=== PATIENT | female | born 1955 | race Caucasian/White ===

== ENCOUNTER 2017-08-28 15:46 | Observation (INO) | payer MEDICAID ==
--- NOTE | 2017-08-28 16:21 | EDM.PDOC ---
ED HPI GENERAL MEDICAL PROBLEM - General Chief Complaint: General Stated Complaint: IN BY AMBULANCE Time Seen by Provider: 08/28/17 16:05 Source of Information: Reports: Patient History Limitations: Reports: No Limitations - History of Present Illness INITIAL COMMENTS - FREE TEXT/NARRATIVE: This 61 yo female patient was brought to the ED by [facility] due to not being able to take care of herself. The patient reports she checked herself out of [facility] in [place]. The patient wanted to be at home with her autistic son as she has been away for the past 14 months. Once the patient arrived at home (by ambulance ), the patient realized that she would not be able to stay there. The patient reports her home was "infested" with flies. The patient reports she was not able to stay in her bed as she has been used to having a bed that inclines. The patient does not know the last time she was able to ambulate. The patient reports she would like to get back to [facility] as she was "happy there". Onset: Unknown/Unsure Duration: Constant Location: Reports: Generalized Quality: Reports: Ache, Dull Severity: Moderate Improves with: Reports: Medication (pain medication) Worsens with: Reports: Movement Associated Symptoms: Reports: Weakness (generalized) Generalized Pain Score (Numeric/FACES): 8 - Related Data Allergies Allergy/AdvReac Type Severity Reaction Status Date / Time No Known Allergies Allergy Verified 06/25/16 18:15 Home Meds: Home Meds Gabapentin [Neurontin] 300 mg PO BEDTIME 06/25/16 [History] Metoprolol Tartrate 25 mg PO BID 06/25/16 [History] Amiodarone [Cordarone] 200 mg PO DAILY 09/04/16 [History] Polyethylene Glycol 3350 [MiraLAX] 17 gm PO DAILY 09/04/16 [History] Simvastatin [Zocor] 10 mg PO BEDTIME 09/04/16 [History] Iron Polysaccharide Complex [Polysaccharide Iron 150] 150 mg PO DAILY 09/17/16 [ History] Amoxicillin 1 cap PO TID 08/28/17 [History] Cyclobenzaprine [Flexeril] 1 tab PO BEDTIME PRN 08/28/17 [History] Escitalopram [Lexapro] 1 tab PO DAILY 08/28/17 [History] Hydrocodone/Acetaminophen [Hydrocodon-Acetaminophn 10-325] 1 tab PO ASDIRECTED PRN 08/28/17 [History] Lactulose [Constulose] 15 ml PO DAILY 08/28/17 [History] Levothyroxine Sodium [Synthroid] 1 tab PO DAILY 08/28/17 [History] Pantoprazole Sodium 1 tab PO BID 08/28/17 [History] Potassium Chloride 1 tab PO DAILY 08/28/17 [History] Rivaroxaban [Xarelto] 1 tab PO DAILY 08/28/17 [History] Past Medical History HEENT History: Reports: Other (See Below) Other HEENT History: dental caries Cardiovascular History: Reports: Afib, High Cholesterol, Hypertension Respiratory History: Reports: Asthma Genitourinary History: Reports: Acute Renal Failure, Urinary Incontinence STAFF SCIENTIST History: Reports: Dysfunctional Uterine Bleeding, Musculoskeletal History: Reports: Arthritis, Back Pain, Chronic, Other (See Below) Other Musculoskeletal History: left knee pain Neurological History: Reports: Neuropathy, Diabetic Endocrine/Metabolic History: Reports: Diabetes, Type II, Obesity/BMI 30+ Hematologic History: Reports: Anemia Oncologic (Cancer) History: Reports: Ovarian - Infectious Disease History Infectious Disease History: Reports: Chicken Pox, Measles, Mumps - Past Surgical History GI Surgical History: Reports: Hernia Repair/Other Social & Family History - Family History Family Medical History: Noncontributory - Tobacco Use Smoking Status *Q: Never Smoker Second Hand Smoke Exposure: No - Caffeine Use Caffeine Use: Reports: None - Recreational Drug Use Recreational Drug Use: No ED ROS GENERAL - Review of Systems Review Of Systems: ROS reveals no pertinent complaints other than HPI. ED EXAM, GENERAL - Physical Exam Exam: See Below Exam Limited By: No Limitations General Appearance: Alert, WD/WN, Moderate Distress, Obese (morbid) Eye Exam: Bilateral Eye: EOMI, Normal Inspection, PERRL Ears: Normal External Exam, Normal Canal, Hearing Grossly Normal, Normal TMs Nose: Normal Inspection, Normal Mucosa, No Blood Throat/Mouth: Normal Inspection, Normal Lips, Normal Teeth, Normal Gums, Normal Oropharynx, Normal Voice, No Airway Compromise Head: Atraumatic, Normocephalic Neck: Normal Inspection, Supple, Non-Tender, Full Range of Motion Respiratory/Chest: No Respiratory Distress, Lungs Clear, Normal Breath Sounds, No Accessory Muscle Use, Chest Non-Tender Cardiovascular: Normal Peripheral Pulses, Regular Rate, Rhythm, No Edema, No Gallop, No JVD, No Murmur, No Rub GI/Abdominal: Normal Bowel Sounds, Soft, Non-Tender, No Organomegaly, No Distention, No Abnormal Bruit, No Mass, Other (morbid obesity) (Female) Exam: Deferred Rectal (Female) Exam: Deferred Back Exam: Normal Inspection, Full Range of Motion Extremities: Pedal Edema, Other (The patient has a wound to her left thigh ( packed) with a small amount of dark purulent drainage) Neurological: Alert, Oriented, CN II-XII Intact, Normal Cognition Psychiatric: Depressed Mood, Flat Affect Skin Exam: Other (wound to left lateral thigh ) Lymphatic: No Adenopathy Course - Vital Signs Last Recorded V/S: Last Vital Signs Temp 37.0 C 08/28/17 15:46 Pulse 67 08/28/17 15:46 Resp 20 08/28/17 15:46 BP 145/86 H 08/28/17 15:46 Pulse Ox 94 L 08/28/17 15:46 - Orders/Labs/Meds Orders: Active Orders 24 hr Category Date Time Status CULTURE BLOOD [BC] Stat Lab 08/28/17 17:00 Received UA W/MICROSCOPIC [URIN] Stat Lab 08/28/17 16:14 Uncollected Labs: Laboratory Tests 08/28/17 08/28/17 08/28/17 Range/Units 16:22 16:22 16:22 WBC 13.9 H (5.0-10.0) 10^3/uL RBC 4.02 L (4.2-5.4) 10^6/uL Hgb 12.4 D (12.0-16.0) g/dL Hct 39.0 (37.0-47.0) % MCV 97.0 D (80-100) fL MCH 30.8 (27.0-34.0) pg MCHC 31.8 L (33.0-35.0) g/dL Plt Count 249 D (150-450) 10^3/uL Neut % (Auto) 80.7 H (42.2-75.2) % Lymph % (Auto) 9.8 L (20.5-50.1) % [place] % (Auto) 9.1 H (2-8) % Eos % (Auto) 0.1 L (1.0-3.0) % Baso % (Auto) 0.3 (0.0-1.0) % PT 11.3 D (9.0-12.0) SEC INR 1.1 (0.9-1.2) Sodium 137 (135-145) mmol/L Potassium 4.0 (3.6-5.0) mmol/L Chloride 100 L (101-111) mmol/L Carbon Dioxide 26.0 (21.0-31.0) mmol/L Anion Gap 15.0 BUN 31 H (7-18) mg/dL Creatinine 1.4 H (0.6-1.3) mg/dL Est Cr Clr Drug Dosing 54.64 mL/min Estimated GFR (MDRD) 38 BUN/Creatinine Ratio 22.14 Glucose 128 H (74-105) mg/dL Lactic Acid (0.5-2.2) mmol/L Calcium 9.3 (8.4-10.2) mg/dl Total Bilirubin 0.8 (0.2-1.0) mg/dL AST 35 (10-42) IU/L ALT 17 (10-60) IU/L Alkaline Phosphatase 62 (42-121) IU/L Total Protein 7.1 (6.7-8.2) g/dl Albumin 3.4 (3.2-5.5) g/dl Globulin 3.7 Albumin/Globulin Ratio 0.92 10/25/17 Range/Units 17:00 WBC (5.0-10.0) 10^3/uL RBC (4.2-5.4) 10^6/uL Hgb (12.0-16.0) g/dL Hct (37.0-47.0) % MCV (80-100) fL MCH (27.0-34.0) pg MCHC (33.0-35.0) g/dL Plt Count (150-450) 10^3/uL Neut % (Auto) (42.2-75.2) % Lymph % (Auto) (20.5-50.1) % [place] % (Auto) (2-8) % Eos % (Auto) (1.0-3.0) % Baso % (Auto) (0.0-1.0) % PT (9.0-12.0) SEC INR (0.9-1.2) Sodium (135-145) mmol/L Potassium (3.6-5.0) mmol/L Chloride (101-111) mmol/L Carbon Dioxide (21.0-31.0) mmol/L Anion Gap BUN (7-18) mg/dL Creatinine (0.6-1.3) mg/dL Est Cr Clr Drug Dosing mL/min Estimated GFR (MDRD) BUN/Creatinine Ratio Glucose (74-105) mg/dL Lactic Acid 1.3 (0.5-2.2) mmol/L Calcium (8.4-10.2) mg/dl Total Bilirubin (0.2-1.0) mg/dL AST (10-42) IU/L ALT (10-60) IU/L Alkaline Phosphatase (42-121) IU/L Total Protein (6.7-8.2) g/dl Albumin (3.2-5.5) g/dl Globulin Albumin/Globulin Ratio - Re-Assessments/Exams Free Text/Narrative Re-Assessment/Exam: 08/28/17 17:59 Discussed the patient's situation with Kizzy Estrada ([facility] in [place]). The referral form was filled out for readmission to [facility] and faxed to the number given on the form along with notes and labs. Kizzy advised that she will submit information back to the [facility] in the morning looking for approval due to failure of home management and readmission to our facility. Discussed the patient's situation with Dr. Mattson (Hospitalist with [facility] in [place]). Dr. Mattson agreed to come to the ED to evaluate the patient for possible observation admission at our facility. Departure - Departure Time of Disposition: 18:21 Disposition: Admitted As Inpatient 66 Condition: Poor Clinical Impression: Self-care deficit for bathing and hygiene, Failure to thrive in adult Leukocytosis, unspecified Qualifiers: Leukocytosis type: bandemia Qualified Code(s): D72.825 - Bandemia - Discharge Information Care Plan Goals: Discussed the patient's history, examination and lab results with Dr. Mattson. Dr. Mattson accepted the patient for continued evaluation and management as an observation patient. - My Orders Last 24 Hours: My Active Orders 08/28/17 16:14 UA W/MICROSCOPIC [URIN] Stat 08/28/17 17:00 CULTURE BLOOD [BC] Stat - Assessment/Plan Last 24 Hours: My Active Orders 08/28/17 16:14 UA W/MICROSCOPIC [URIN] Stat 08/28/17 17:00 CULTURE BLOOD [BC] Stat
[2017-08-28] MEDS ORDERED: Ondansetron 4 MG Tab.DIS PO PRN (19:09)
[2017-08-28] MEDS ORDERED: Non-Formulary Medication 1 Each (Melatonin [Melatonin] 1 TAB) PO PRN (19:13)
[2017-08-28] MEDS ORDERED: Acetaminophen 325 MG Tab PO PRN ×2 (19:13→20:14)
[2017-08-28] MEDS ORDERED: Cyclobenzaprine 10 MG Tab PO PRN (19:13)
[2017-08-28] MEDS ORDERED: Polyvinyl Alcohol 1.4% Ophth Soln 15 ML Bottle EYEBOTH PRN (19:13)
[2017-08-28] MEDS ORDERED: Acetaminophen/HYDROcodone 325-10 MG Tab PO PRN (19:13)
[2017-08-28] MEDS: Amoxicillin 500 MG Cap PO SCH (20:46)
[2017-08-28] MEDS: Simvastatin 10 MG Tab PO SCH (20:46)
[2017-08-28] MEDS: Metoprolol Tartrate 25 MG Tab PO SCH (20:46)
[2017-08-28] MEDS: Gabapentin 300 MG Cap PO SCH (20:46)
[2017-08-28] MEDS: Nystatin Topical Powder 30 GM Bottle TOP SCH (20:58)
[2017-08-28] MEDS ORDERED: Heparin Sodium 5,000 Units/ML Vial SUBCUT SCH (22:00)
[2017-08-29] MEDS: Acetaminophen/HYDROcodone 325-10 MG Tab PO PRN ×4 (01:13→21:46)
--- NOTE | 2017-08-29 01:22 | HP ---
CHIEF COMPLAINT: Weakness. HISTORY OF PRESENT ILLNESS: Ms. Ebony Goodwin is a 61-year-old female who checked with multiple medical problems including morbid obesity, diabetes, hypertension, and decubitus ulcers. The patient has been staying at [facility] in [place]. She signed out against medical advice and went home to stay with her autistic son. On getting home, she realized that the house was very unkempt. The house was infested with flies. She was unable to stay there. She has been feeling weak. Denies fever, chills, or rigors. Because of that, she came to the emergency room. Reported that she would like to go back to [facility]. She does have a wound on the left lateral thigh. She has been getting amoxicillin for that. PAST MEDICAL HISTORY: Asthma, diabetes mellitus, morbid obesity, hypertension, dyslipidemia, neuropathy. SOCIAL HISTORY: Reviewed and considered noncontributory. FAMILY HISTORY: Also reviewed and considered noncontributory. CURRENT MEDICATIONS: Reviewed. The patient is on: 1. Xarelto. 2. Amoxicillin. 3. Amiodarone. 4. Metoprolol. 5. Gabapentin. 6. Simvastatin. 7. Flexeril. 8. Lexapro. 9. [place]. 10.Levothyroxine. 11.Protonix. OBJECTIVE: General: The patient is alert, oriented to place, time, and person. Head: Atraumatic and normocephalic. Ear, Nose, and Throat: Unremarkable. Neck: Supple. Chest: Clear to auscultation. CVS: Regular rate and rhythm. Abdomen: Soft, nontender. Extremities: Has a decubitus ulcer on the lateral surface of the left upper thigh. No significant slough noted. Vital Signs: Reviewed. Blood pressure is 140/95, pulse 82 per minute, respiratory rate 20 per minute, oxygen saturation 96%. LABORATORY DATA: White count is 13.9, hemoglobin is 12.4, platelet is 249. Basic metabolic panel is essentially unremarkable. ASSESSMENT: 1. Generalized weakness. 2. Infected decubitus ulcers. 3. Diabetes mellitus type 2. 4. Hypothyroidism. 5. Hypertension. PLAN: 1. Admit the patient to medical floor. 2. Consult Dairy Helper. Consult Physical Therapy. Consult Occupational Therapy. 3. Restart amoxicillin. We will make arrangement to have the patient transferred back to [facility] in the morning. [facility] /[id number]
[2017-08-29] MEDS: Levothyroxine 75 MCG Tab PO SCH (05:46)
[2017-08-29] MEDS: Rivaroxaban 10 MG Tab PO SCH (08:43)
[2017-08-29] MEDS: Amoxicillin 500 MG Cap PO SCH ×3 (08:43→21:18)
[2017-08-29] MEDS: Escitalopram 10 MG Tab PO SCH (08:43)
[2017-08-29] MEDS: Calcium Carbonate/Vitamin D3 1250 MG-200 Unit Tab PO SCH (08:44)
[2017-08-29] MEDS: Iron Polysaccharides Complex 150 MG Cap PO SCH (08:44)
[2017-08-29] MEDS: Amiodarone 200 MG Tab PO SCH (08:44)
[2017-08-29] MEDS: Metoprolol Tartrate 25 MG Tab PO SCH ×2 (08:45→21:23)
[2017-08-29] MEDS: Polyethylene Glycol 3350 Powder 17 GM Packet PO SCH (08:46)
[2017-08-29] MEDS: Ascorbic Acid 500 MG Tab PO SCH (08:51)
[2017-08-29] MEDS: Nystatin Topical Powder 30 GM Bottle TOP SCH ×2 (08:53→21:27)
--- NOTE | 2017-08-29 20:53 | PN ---
DATE: 08/29/2017 SUBJECTIVE: Ebony Goodwin is a 61-year-old lady, well known to me from many years of care. She has been ill and hospitalized almost continually since June 29, 2016. She was discharged back to home last September 03, but was back in the hospital the following day and has been continuously hospitalized since September 04, 2016. She was discharged from [facility], a [facility] in [place], on August 27. She called the ambulance yesterday again stating that she was unable to take care of herself. Adult Protective Services has been involved in this situation and is working with us to determine placement. Our swing bed coordinator was on the phone today several times with [facility] and in the afternoon, [facility] stated that they would not re-admit her and we are now in the process of seeking a long-term residential placement in the local area. We have made calls to 4 nursing homes and the swing bed coordinator has faxed out information for them to review. Lab work from admission was reviewed. Her white count was 14,000. I have taken care of this lady for many years and her white count at baseline has always been slightly elevated in the same range. BUN and creatinine yesterday were 31 and 1.4 with a GFR of 38. Her blood sugars are being monitored and are well controlled. One set of blood culture shows no growth after 1 day. Ebony is in her bed. We discussed her situation and the alternatives. The worker from Adult Protective Services also came to see her and spent time with her. Ebony now, at least, excepts the fact that she most likely will go to the care home. PHYSICAL EXAMINATION: General: On physical exam, she denied chest pain or shortness of breath. She is drinking adequate fluids. She is voiding and moving her bowels. She is tolerating her diet. Vital Signs: Blood pressure was 109/66, pulse 72, respiratory rate 20, oxygen saturation 100% on room air. She is afebrile. HEENT: Unremarkable. ENT was clear. Chest: Showed diminished bilateral breath sounds due to body habitus. Heart: Showed regular rate and rhythm. Abdomen: Obese, soft, and benign. Skin: Examination of the skin shows a healing pressure wound on the left posterior lateral thigh. This wound was debrided surgically in [place]. She is currently being treated with wet-to-dry dressings using Dakin's solution. We have ordered Dakin's and it will be here tomorrow and for now, the area is being cleansed and we are using sterile saline wet-to-dry dressings. We will continue the present management while we seek placement. No other changes are made in her care today. [facility] /[id number] JASON
[2017-08-29] MEDS: Pantoprazole 40 MG Tab.CR PO SCH (21:17)
[2017-08-29] MEDS: Simvastatin 10 MG Tab PO SCH (21:18)
[2017-08-29] MEDS: Gabapentin 300 MG Cap PO SCH (21:19)
[2017-08-30] MEDS: Pantoprazole 40 MG Tab.CR PO SCH ×2 (05:54→16:40)
[2017-08-30] MEDS: Levothyroxine 75 MCG Tab PO SCH (05:54)
[2017-08-30] MEDS: Amiodarone 200 MG Tab PO SCH (08:36)
[2017-08-30] MEDS: Iron Polysaccharides Complex 150 MG Cap PO SCH (08:36)
[2017-08-30] MEDS: Calcium Carbonate/Vitamin D3 1250 MG-200 Unit Tab PO SCH (08:36)
[2017-08-30] MEDS: Amoxicillin 500 MG Cap PO SCH ×2 (08:36→14:36)
[2017-08-30] MEDS: Ascorbic Acid 500 MG Tab PO SCH (08:36)
[2017-08-30] MEDS: Metoprolol Tartrate 25 MG Tab PO SCH (08:37)
[2017-08-30] MEDS: Rivaroxaban 10 MG Tab PO SCH (08:38)
[2017-08-30] MEDS: Polyethylene Glycol 3350 Powder 17 GM Packet PO SCH (08:38)
[2017-08-30] MEDS: Escitalopram 10 MG Tab PO SCH (08:38)
[2017-08-30 08:39] VITALS: BP 123/74
[2017-08-30] MEDS: Acetaminophen/HYDROcodone 325-10 MG Tab PO PRN ×2 (08:49→16:38)
[2017-08-30] MEDS: Nystatin Topical Powder 30 GM Bottle TOP SCH (08:52)
--- NOTE | 2017-08-30 16:39 | PCM.DCSUM1 ---
Discharge Summary - Hospital Course Free Text/Narrative:: 61 y/o female with PMH of HTN, diabetes mellitus, dyslipidemia, neuropathy, asthma, morbid obesity, decubitus ulcer presented to the emergency room for not being able to stay at her house due to concern about lack of hygiene. Patient was staying at [facility] in [place], [place] and left home AGAINST MEDICAL ADVICE on 08/27 to go stay with her autistic son. However when she got home she relies the house was infested with flies and feces are thrown everywhere so she called the ambulance stating that she cannot take care of herself. Adult Protective Services were involved and wanted her to have placement so she was brought to the emergency room and was admitted to the hospital. Patient has been getting amoxicillin for her decubitus ulcer. Patient had debridement of her ulcer by general surgery in [place], [place]. Oriented admission patient denies fever, chills, nausea, vomiting, chest pain, shortness breath. Today patient mentioned to me that 2 days ago she slept on her right arm and since then it has been hurting mostly in the shoulder area. She denies fall. no arm weakness. On admission WBC 13.9. Neutrophils 80.7%. INR 1.1. Creatinine 1.4. Blood glucose 128. UA is unremarkable. Patient was admitted to medical floor for generalized weakness, infected decubitus ulcer and amoxicillin was restarted. ornamental metal worker helper was involved to arrange for transferring back [facility]. Ultrasound was social media manager and coordinating staff was decided that patient being admitted to swing bed while trying to find a penitentiary for her to get physical therapy and wound care as patient first to go back to her home and stay with her son eventually. Today patient denies any complaint other than some right arm pain that gotten much better than yesterday. She'll be admitted to swing bed under resume her current treatment. - Discharge Data Discharge Date: 08/30/17 Discharge Disposition: DC/Tfer W/I Hosp To Swing 61 Condition: Good - Discharge Diagnosis/Problem(s) (1) Failure to thrive in adult SNOMED Code(s): 290494578 ICD Code: R62.7 - ADULT FAILURE TO THRIVE Status: Acute Current Visit: Yes (2) Chronic kidney disease (CKD), stage III (moderate) SNOMED Code(s): 376555637 ICD Code: N18.3 - CHRONIC KIDNEY DISEASE, STAGE 3 (MODERATE) Status: Chronic Current Visit: No Onset Date: ~06/25/16 (3) Diabetes mellitus, type 2 SNOMED Code(s): 33554492 ICD Code: E11.9 - TYPE 2 DIABETES MELLITUS WITHOUT COMPLICATIONS Status: Chronic Priority: Medium Current Visit: No Qualifiers: Diabetes mellitus complication status: without complication Diabetes mellitus senior living insulin use: without clamper use Qualified Code(s): E11.9 - Type 2 diabetes mellitus without complications (4) Morbid obesity with BMI of 60.0-69.9, adult SNOMED Code(s): 233394367 ICD Code: E66.01 - MORBID (SEVERE) OBESITY DUE TO EXCESS CALORIES; Z68.44 - BODY MASS INDEX (BMI) 60.0-69.9, ADULT Status: Chronic Priority: High Current Visit: No - Discharge Plan Home Medications: Home Meds Gabapentin [Neurontin] 300 mg PO BEDTIME 06/25/16 [History] Metoprolol Tartrate 25 mg PO BID 06/25/16 [History] Amiodarone [Cordarone] 200 mg PO DAILY 09/04/16 [History] Polyethylene Glycol 3350 [MiraLAX] 17 gm PO DAILY 09/04/16 [History] Simvastatin [Zocor] 10 mg PO BEDTIME 09/04/16 [History] Iron Polysaccharide Complex [Polysaccharide Iron 150] 150 mg PO DAILY 09/17/16 [ History] Acetaminophen [Tylenol] 2 tab PO Q8HR PRN 08/28/17 [History] Amoxicillin 1 cap PO TID 08/28/17 [History] Ascorbate Calcium [Vitamin C] 1 tab PO DAILY 08/28/17 [History] Bisacodyl 1 supp RC ASDIRECTED PRN 08/28/17 [History] Calcium Carbonate/Vitamin D3 [Calcium 500-Vit D3 200 Tablet] 1 tab PO DAILY [History] Cyclobenzaprine [Flexeril] 1 tab PO BEDTIME PRN 08/28/17 [History] Escitalopram [Lexapro] 1 tab PO DAILY 08/28/17 [History] Hydrocodone/Acetaminophen [Hydrocodon-Acetaminophn 10-325] 1 tab PO Q6HR PRN [History] Lactulose [Constulose] 15 ml PO DAILY 08/28/17 [History] Levothyroxine Sodium [Synthroid] 1 tab PO DAILY 08/28/17 [History] Melatonin 1 tab PO BEDTIME PRN 08/28/17 [History] Multivitamin with Minerals [Multivitamins with Minerals] 1 tab PO DAILY [History] Pantoprazole Sodium 1 tab PO BID 08/28/17 [History] Polyvinyl Alcohol [Liquitears] 1 drop EYEBOTH ASDIRECTED PRN 08/28/17 [History] Potassium Chloride 1 tab PO DAILY 08/28/17 [History] Rivaroxaban [Xarelto] 1 tab PO DAILY 08/28/17 [History] Sennosides/Docusate Sodium [Senna Plus Tablet] 2 tab PO BID 08/28/17 [History] Referrals: PCP,None [Primary Care Provider] - - General Info Date of Service: 08/30/17 - Review of Systems General: Denies: Fever, Chills, Night Sweats, Appetite HEENT: Reports: No Symptoms Pulmonary: Reports: No Symptoms Cardiovascular: Reports: No Symptoms Gastrointestinal: Reports: No Symptoms Genitourinary: Reports: No Symptoms Musculoskeletal: Denies: Neck Pain, Leg Pain, Foot Pain Skin: Denies: Jaundice, Pallor, Diaphoresis Neurological: Reports: No Symptoms Psychiatric: Reports: No Symptoms - Patient Data Vitals - Most Recent: Last Vital Signs Temp 36.3 C 08/30/17 08:00 Pulse 73 08/30/17 08:37 Resp 20 08/30/17 08:00 BP 123/74 08/30/17 08:37 Pulse Ox 100 08/30/17 08:00 Weight - Most Recent: 133.356 kg I&O - Last 24 hours: Intake & Output 08/30/17 08/30/17 08/30/17 06:59 14:59 22:59 Intake Total 300 200 Output Total 210 Balance 90 200 Lab Results - Last 24 hrs: Laboratory Results - last 24 hr 08/29/17 08/30/17 08/30/17 Range/Units 16:52 07:55 11:39 POC Glucose 133 H 93 108 H (70-105) mg/dl Med Orders - Current: Current Medications Acetaminophen (Tylenol) 650 mg PO Q8H PRN PRN Reason: Pain (mild 1-3) Hydrocodone Bitart/Acetaminophen ([place] 325-10 Mg) 1 tab PO Q6H PRN PRN Reason: Pain (moderate 4-6) Last Admin: 08/30/17 08:49 Dose: 1 tab Amiodarone HCl (Cordarone) 200 mg PO DAILY [facility] Last Admin: 08/30/17 08:36 Dose: 200 mg Amoxicillin (Amoxil) 500 mg PO TID [facility] Last Admin: 08/30/17 14:36 Dose: 500 mg Artificial Tears (Liquitears 1.4% Ophth Soln) 0 ml EYEBOTH ASDIRECTED PRN PRN Reason: Dry Eyes Ascorbic Acid (Vitamin C) 500 mg PO DAILY [facility] Last Admin: 08/30/17 08:36 Dose: 500 mg Calcium Carbonate (Calcium Carbonate/Vitamin D 1250 Mg-200 Unit) 1 tab PO DAILY [facility] Last Admin: 08/30/17 08:36 Dose: 1 tab Cyclobenzaprine HCl (Flexeril) 10 mg PO BEDTIME PRN PRN Reason: muscles Escitalopram Oxalate (Lexapro) 20 mg PO DAILY [facility] Last Admin: 08/30/17 08:38 Dose: 20 mg Gabapentin (Neurontin) 300 mg PO BEDTIME [facility] Last Admin: 08/29/17 21:19 Dose: 300 mg Levothyroxine Sodium (Levothyroxine) 75 mcg PO ACBRK [facility] Last Admin: 08/30/17 05:54 Dose: 75 mcg Metoprolol Tartrate (Lopressor) 25 mg PO BID [facility] Last Admin: 08/30/17 08:37 Dose: 25 mg Dakin's (Sodium Hypochlorite) Solution 0.25% Solution Non- Formulary Med 0 each TOP TID [facility] Nystatin (Nystop) 0 gm TOP BID [facility] Last Admin: 08/30/17 08:52 Dose: 1 applic Ondansetron HCl (Zofran Odt) 4 mg PO Q6H PRN PRN Reason: nausea, able to take PO Pantoprazole Sodium (Protonix) 40 mg PO BIDAC [facility] Last Admin: 08/30/17 05:54 Dose: 40 mg Polyethylene Glycol (Miralax) 17 gm PO DAILY [facility] Last Admin: 08/30/17 08:38 Dose: 17 gm Polysaccharide Iron Complex (Ferrex 150) 150 mg PO DAILY [facility] Last Admin: 08/30/17 08:36 Dose: 150 mg Rivaroxaban (Xarelto) 20 mg PO WITHBREAKFAST [facility] Last Admin: 08/30/17 08:38 Dose: 20 mg Simvastatin (Zocor) 10 mg PO BEDTIME [facility] Last Admin: 08/29/17 21:18 Dose: 10 mg Discontinued Medications Heparin Sodium (Porcine) (Heparin Sodium) 5,000 units SUBCUT Q8HR [facility] Non-Formulary Medication (Melatonin [Melatonin]) 1 tab PO BEDTIME PRN PRN Reason: Sleep - Exam General: Reports: Alert, Oriented, Cooperative, No Acute Distress, Other ( Morbidly obese). Denies: Mild Distress, Moderate Distress, Severe Distress, Sedated, Lethargic, Obtunded HEENT: Reports: Pupils Equal, Pupils Reactive, EOMI, Mucous Membr. Moist/[place] Neck: Reports: Supple, Trachea Midline, No JVD Lungs: Reports: Clear to Auscultation, Normal Respiratory Effort Cardiovascular: Reports: Regular Rate, Regular Rhythm GI/Abdominal Exam: Normal Bowel Sounds, Soft, Non-Tender, No Organomegaly, No Distention, No Abnormal Bruit, No Mass, Pelvis Stable (Female) Exam: Deferred Rectal (Female) Exam: Deferred Back Exam: Reports: Normal Inspection, Full Range of Motion Extremities: No Pedal Edema, Normal Capillary Refill, Other (Mild left upper extremity muscle tenderness. All joints are normal. No bruise ) Skin: Reports: Dry, Intact, Other (Dressing on right decubitus ulcer) Neurological: Reports: No New Focal Deficit Psy/Mental Status: Reports: Alert, Normal Affect, Normal Mood *Q Meaningful Use (DIS) - VTE *Q VTE Criteria *Q: - Stroke *Q Stroke Criteria *Q: - AMI *Q AMI Criteria *Q:
[2017-08-30] MEDS ORDERED: SODIUM HYPOCHLORITE TOP SCH (21:00)
[2017-08-30] MEDS ORDERED: [UNRECOGNIZED DRUG - OTHER] TOP SCH (21:00)
== END 2017-08-30 16:49 | disposition swing bed (61) ==
LOC: DL.ED 15:46 → DL.MS 18:37 → UNDOADMOB 18:37 → DL.MS 19:09
PROVIDERS: ADMIT Hospitalist; ATTEND Hospitalist
DX: R62.7 Adult failure to thrive (principal); E66.01 Morbid (severe) obesity due to excess calories; N18.3 Chronic kidney disease, stage 3 (moderate); I12.9 Hypertensive chronic kidney disease with stage 1 through stage 4 chronic kidney disease, or unspecified chronic kidney disease; E11.22 Type 2 diabetes mellitus with diabetic chronic kidney disease; J45.909 Unspecified asthma, uncomplicated; E03.9 Hypothyroidism, unspecified; Z68.44 Body mass index [BMI] 60.0-69.9, adult; Z79.899 Other long term (current) drug therapy; Z79.2 Long term (current) use of antibiotics; Z98.890 Other specified postprocedural states
CPT/HCPCS: 36415; 51702; 80053; 81001; 82962; 83605; 85025; 85610; 87040; 97166; 99285; A9270; G0378; 97162-GP

== ENCOUNTER 2017-08-30 14:50 | Inpatient (IN) | payer MEDICAID ==
[2017-08-30] MEDS ORDERED: Polyvinyl Alcohol 1.4% Ophth Soln 15 ML Bottle EYEBOTH PRN (17:01)
[2017-08-30] MEDS ORDERED: Ondansetron 4 MG Tab.DIS PO PRN (17:01)
[2017-08-30] MEDS ORDERED: Acetaminophen 325 MG Tab PO PRN (17:01)
[2017-08-30] MEDS ORDERED: Cyclobenzaprine 10 MG Tab PO PRN (17:01)
[2017-08-30] MEDS ORDERED: Benzocaine/Cetylpyridinium/Menthol Lozenge MUCMEM PRN (17:04)
[2017-08-30] MEDS ORDERED: Zolpidem 5 MG Tab PO PRN (17:04)
[2017-08-30] MEDS ORDERED: Sodium Chloride 0.65% Nasal Spray 45 ML Bottle NAS PRN (17:04)
--- NOTE | 2017-08-30 17:13 | PCM.HP ---
H&P History of Present Illness - General Date of Service: 08/30/17 Admit Problem/Dx: Admission Diagnosis/Problem Admission Diagnosis/Problem Weakness Source of Information: Patient - History of Present Illness Initial Comments - Free Text/Narative: 61 y/o female with PMH of HTN, diabetes mellitus, dyslipidemia, neuropathy, asthma, morbid obesity, decubitus ulcer presented to the emergency room for not being able to stay at her house due to concern about lack of hygiene. Patient was staying at [facility] in [place], [place] and left home AGAINST MEDICAL ADVICE on 08/27 to go stay with her autistic son. However when she got home she relies the house was infested with flies and feces are thrown everywhere so she called the ambulance stating that she cannot take care of herself. Adult Protective Services were involved and wanted her to have placement so she was brought to the emergency room and was admitted to the hospital. Patient has been getting amoxicillin for her decubitus ulcer. Patient had debridement of her ulcer by general surgery in [place], [place]. Oriented admission patient denies fever, chills, nausea, vomiting, chest pain, shortness breath. Today patient mentioned to me that 2 days ago she slept on her right arm and since then it has been hurting mostly in the shoulder area. She denies fall. no arm weakness. On admission WBC 13.9. Neutrophils 80.7%. INR 1.1. Creatinine 1.4. Blood glucose 128. UA is unremarkable. Patient was admitted to medical floor for generalized weakness, infected decubitus ulcer and amoxicillin was restarted. layout worker was involved to arrange for transferring back [facility]. Ultrasound was psychiatric social worker and coordinating staff was decided that patient being admitted to swing bed while trying to find a m[facility] for her to get physical therapy and wound care as patient first to go back to her home and stay with her son eventually. Today patient denies any complaint other than some right arm pain that gotten much better than yesterday. She is being admitted to swing bed to continue physical therapy, wound care, and look for placement - Related Data Allergies/Adverse Reactions: Allergies Allergy/AdvReac Type Severity Reaction Status Date / Time No Known Allergies Allergy Verified 08/30/17 17:14 Home Medications: Home Meds Gabapentin [Neurontin] 300 mg PO BEDTIME 06/25/16 [History] Metoprolol Tartrate 25 mg PO BID 06/25/16 [History] Amiodarone [Cordarone] 200 mg PO DAILY 09/04/16 [History] Polyethylene Glycol 3350 [MiraLAX] 17 gm PO DAILY 09/04/16 [History] Simvastatin [Zocor] 10 mg PO BEDTIME 09/04/16 [History] Iron Polysaccharide Complex [Polysaccharide Iron 150] 150 mg PO DAILY 09/17/16 [ History] Acetaminophen [Tylenol] 2 tab PO Q8HR PRN 08/28/17 [History] Amoxicillin 1 cap PO TID 08/28/17 [History] Ascorbate Calcium [Vitamin C] 1 tab PO DAILY 08/28/17 [History] Bisacodyl 1 supp RC ASDIRECTED PRN 08/28/17 [History] Calcium Carbonate/Vitamin D3 [Calcium 500-Vit D3 200 Tablet] 1 tab PO DAILY [History] Cyclobenzaprine [Flexeril] 1 tab PO BEDTIME PRN 08/28/17 [History] Escitalopram [Lexapro] 1 tab PO DAILY 08/28/17 [History] Hydrocodone/Acetaminophen [Hydrocodon-Acetaminophn 10-325] 1 tab PO Q6HR PRN [History] Lactulose [Constulose] 15 ml PO DAILY 08/28/17 [History] Levothyroxine Sodium [Synthroid] 1 tab PO DAILY 08/28/17 [History] Melatonin 1 tab PO BEDTIME PRN 08/28/17 [History] Multivitamin with Minerals [Multivitamins with Minerals] 1 tab PO DAILY [History] Pantoprazole Sodium 1 tab PO BID 08/28/17 [History] Polyvinyl Alcohol [Liquitears] 1 drop EYEBOTH ASDIRECTED PRN 08/28/17 [History] Potassium Chloride 1 tab PO DAILY 08/28/17 [History] Rivaroxaban [Xarelto] 1 tab PO DAILY 08/28/17 [History] Sennosides/Docusate Sodium [Senna Plus Tablet] 2 tab PO BID 08/28/17 [History] Past Medical History HEENT History: Reports: Other (See Below) Other HEENT History: dental caries Cardiovascular History: Reports: Afib, High Cholesterol, Hypertension Respiratory History: Reports: Asthma Gastrointestinal History: Reports: GERD Genitourinary History: Reports: Acute Renal Failure, Urinary Incontinence MIXED [employer] History: Reports: Dysfunctional Uterine Bleeding, Musculoskeletal History: Reports: Arthritis, Back Pain, Chronic, Other (See Below) Other Musculoskeletal History: left knee pain Neurological History: Reports: Neuropathy, Diabetic Psychiatric History: Reports: Depression Endocrine/Metabolic History: Reports: Diabetes, Type II, Obesity/BMI 30+ Hematologic History: Reports: Anemia Oncologic (Cancer) History: Reports: Ovarian Dermatologic History: Reports: Other (See Below) Other Dermatologic History: open wound left lat. thigh with packing. On amoxicillin for ulcer - Infectious Disease History Infectious Disease History: Reports: Chicken Pox, Measles, Mumps - Past Surgical History GI Surgical History: Reports: Hernia Repair/Other Social & Family History - Family History Family Medical History: Noncontributory - Tobacco Use Smoking Status *Q: Never Smoker Second Hand Smoke Exposure: No - Caffeine Use Caffeine Use: Reports: Soda - Recreational Drug Use Recreational Drug Use: No H&P Review of Systems - Review of Systems: Review Of Systems: ROS reveals no pertinent complaints other than HPI. Exam - Exam Exam: See Below - Vital Signs Vital Signs: Last Vital Signs Temp 36.7 C 08/30/17 16:51 Pulse 74 08/30/17 16:51 Resp 20 08/30/17 16:51 BP 137/86 08/30/17 16:51 Pulse Ox 100 08/30/17 16:51 - Exam General: Alert, Oriented, Cooperative, Other (Morbidly obese). No: Moderate Distress, Severe Distress, Sedated, Lethargic, Obtunded HEENT: Conjunctiva Clear, EACs Clear, EOMI, Hearing Intact, Mucosa Moist & [place] , Nares Patent, Normal Nasal Septum, Posterior Pharynx Clear, Pupils Equal, Pupils Reactive Neck: Supple, Trachea Midline Lungs: Clear to Auscultation, Normal Respiratory Effort Cardiovascular: Regular Rate, Regular Rhythm GI/Abdominal Exam: Normal Bowel Sounds, Soft, Non-Tender, No Organomegaly, No Distention, No Abnormal Bruit, No Mass, Pelvis Stable, Other (Difficult to assess in general due to body habitus) (Female) Exam: Deferred Rectal (Female) Exam: Deferred Back Exam: Normal Inspection, Full Range of Motion. No: CVA Tenderness (L), CVA Tenderness (R) Extremities: Normal Inspection, Normal Range of Motion, No Pedal Edema, Normal Capillary Refill, Arm Pain (Right arm) Skin: Dry, Intact, Rash, Decubitis Neurological: Cranial Nerves Intact, Reflexes Equal Bilateral Neuro Extensive - Mental Status: Alert, Oriented x3, Normal Mood/Affect Neuro Extensive - Motor, Sensory, Reflexes: CN II-XII Intact. No: Tongue Deviation (L), Tongue Deviation (R), Dysarthria Psychiatric: Alert, Normal Affect, Normal Mood *Q Meaningful Use (ADM) - VTE *Q VTE Criteria *Q: - Stroke *Q Stroke Criteria *Q: - AMI *Q AMI Criteria *Q: - Problem List (1) Failure to thrive in adult SNOMED Code(s): 646162565 ICD Code: R62.7 - ADULT FAILURE TO THRIVE Status: Chronic Current Visit: No (2) Self-care deficit for bathing and hygiene SNOMED Code(s): 49868039 ICD Code: R46.0 - VERY LOW LEVEL OF PERSONAL HYGIENE Status: Chronic Current Visit: No (3) A-fib SNOMED Code(s): 29527168 ICD Code: I48.91 - UNSPECIFIED ATRIAL FIBRILLATION Status: Chronic Priority: Medium Current Visit: No Onset Date: ~07/06/16 Qualifiers: (4) Chronic anticoagulation SNOMED Code(s): 271421247 ICD Code: Z79.01 - FINISH SPECIALIST (CURRENT) USE OF ANTICOAGULANTS Status: Chronic Current Visit: No Onset Date: ~09/04/16 (5) Diabetes mellitus, type 2 SNOMED Code(s): 85361902 ICD Code: E11.9 - TYPE 2 DIABETES MELLITUS WITHOUT COMPLICATIONS Status: Chronic Priority: Medium Current Visit: No Qualifiers: (6) Morbid obesity with BMI of 60.0-69.9, adult SNOMED Code(s): 441980605 ICD Code: E66.01 - MORBID (SEVERE) OBESITY DUE TO EXCESS CALORIES; Z68.44 - BODY MASS INDEX (BMI) 60.0-69.9, ADULT Status: Chronic Priority: High Current Visit: No Problem List Initiated/Reviewed/Updated: Yes Orders Last 24hrs: Active Orders 24 hr Category Date Time Status Patient Status [ADT] Routine ADT 08/30/17 17:04 Ordered Blood Glucose Check, Bedside [RC] TIDMEALS Care 08/30/17 17:01 Ordered Communication Order [RC] Q8HR Care 08/30/17 17:01 Ordered Insert Edouard Catheter [Insert Urinary Catheter] [OM.PC] Care 08/30/17 17:01 Ordered Q24H Intake and Output [RC] ASDIRECTED Care 08/30/17 17:04 Ordered Oxygen Therapy [RC] PRN Care 08/30/17 17:01 Ordered Oxygen Therapy [RC] PRN Care 08/30/17 17:04 Ordered Up ad Greer [RC] ASDIRECTED Care 08/30/17 17:01 Ordered Urinary Catheter Assessment [RC] ASDIRECTED Care 08/30/17 17:01 Ordered Urinary Catheter Assessment [RC] ASDIRECTED Care 08/30/17 17:01 Ordered VTE/DVT Education [RC] PER UNIT ROUTINE Care 08/30/17 17:01 Ordered Vital Signs [RC] PER UNIT ROUTINE Care 08/30/17 17:04 Ordered Wound Care [RC] Q8H Care 08/30/17 17:01 Ordered Consult to Teacher Early Childhood Development [CONS] Routine Cons 08/30/17 17:01 Ordered OT Evaluation and Treatment [CONS] Routine Cons 08/30/17 17:01 Ordered PT Evaluation and Treatment [CONS] Routine Cons 08/30/17 17:01 Ordered Consistent Carbohydrate Diet [DIET] Diet 08/30/17 Dinner Ordered Acetaminophen [Tylenol] Med 08/30/17 17:01 Ordered 650 mg PO Q8H PRN Acetaminophen/HYDROcodone [[place] 325-10 MG] Med 08/30/17 17:01 Ordered 1 tab PO Q6H PRN Amiodarone [Cordarone] Med 08/31/17 09:00 Ordered 200 mg PO DAILY Amoxicillin [Amoxil] Med 08/30/17 21:00 Ordered 500 mg PO TID Ascorbic Acid [Vitamin C] Med 08/31/17 09:00 Ordered 500 mg PO DAILY Benzocaine/Cetylpyrd/Menthol [Cepacol Sore Throat] Med 08/30/17 17:04 Ordered 1 lozenge MUCMEM Q6H PRN Calcium Carbonate/Vitamin D3 [Calcium Carbonate/Vitamin Med 08/31/17 09:00 Ordered D 1250 MG-200 Unit] 1 tab PO DAILY Cyclobenzaprine [Flexeril] Med 08/30/17 17:01 Ordered 10 mg PO BEDTIME PRN Escitalopram [Lexapro] Med 08/31/17 09:00 Ordered 20 mg PO DAILY Gabapentin [Neurontin] Med 08/30/17 21:00 Ordered 300 mg PO BEDTIME Iron Polysaccharides Complex [Ferrex 150] Med 08/31/17 09:00 Ordered 150 mg PO DAILY Levothyroxine Med 08/31/17 06:00 Ordered 75 mcg PO ACBRK Metoprolol Tartrate [Lopressor] Med 08/30/17 21:00 Ordered 25 mg PO BID Non-Formulary Medication [NF Drug] Med 08/30/17 21:00 Ordered See Dose Instructions TOP TID Nystatin [Nystop] Med 08/30/17 21:00 Ordered 0 gm TOP BID Ondansetron [Zofran ODT] Med 08/30/17 17:01 Ordered 4 mg PO Q6H PRN Pantoprazole [ProTONIX] Med 08/31/17 06:00 Ordered 40 mg PO BIDAC Polyethylene Glycol 3350 [MiraLAX] Med 08/31/17 09:00 Ordered 17 gm PO DAILY Polyvinyl Alcohol [LiquiTears 1.4% Ophth Soln] Med 08/30/17 17:01 Ordered 0 ml EYEBOTH ASDIRECTED PRN Rivaroxaban [Xarelto] Med 08/31/17 08:00 Ordered 20 mg PO WITHBREAKFAST Simvastatin [Zocor] Med 08/30/17 21:00 Ordered 10 mg PO BEDTIME Sodium Chloride 0.65% [[place] Nasal [place]] Med 08/30/17 17:04 Ordered 1 ml YOANDY BID PRN Zolpidem [Ambien] Med 08/30/17 17:04 Ordered 5 mg PO BEDTIME PRN Resuscitation Status Routine Resus Stat 08/30/17 17:04 Ordered Medication Orders Acetaminophen (Tylenol) 650 mg PO Q8H PRN PRN Reason: Pain (mild 1-3) Hydrocodone Bitart/Acetaminophen ([place] 325-10 Mg) 1 tab PO Q6H PRN PRN Reason: Pain (moderate 4-6) Amiodarone HCl (Cordarone) 200 mg PO DAILY [facility] Amoxicillin (Amoxil) 500 mg PO TID [facility] Artificial Tears (Liquitears 1.4% Ophth Soln) 0 ml EYEBOTH ASDIRECTED PRN PRN Reason: Dry Eyes Ascorbic Acid (Vitamin C) 500 mg PO DAILY [facility] Calcium Carbonate (Calcium Carbonate/Vitamin D 1250 Mg-200 Unit) 1 tab PO DAILY [facility] Cyclobenzaprine HCl (Flexeril) 10 mg PO BEDTIME PRN PRN Reason: muscles Escitalopram Oxalate (Lexapro) 20 mg PO DAILY [facility] Gabapentin (Neurontin) 300 mg PO BEDTIME [facility] Levothyroxine Sodium (Levothyroxine) 75 mcg PO ACBRK [facility] Metoprolol Tartrate (Lopressor) 25 mg PO BID [facility] Non-Formulary Medication (Nf Drug) 0 each TOP TID [facility] Nystatin (Nystop) 0 gm TOP BID [facility] Ondansetron HCl (Zofran Odt) 4 mg PO Q6H PRN PRN Reason: nausea, able to take PO Pantoprazole Sodium (Protonix) 40 mg PO BIDAC [facility] Polyethylene Glycol (Miralax) 17 gm PO DAILY [facility] Polysaccharide Iron Complex (Ferrex 150) 150 mg PO DAILY [facility] Rivaroxaban (Xarelto) 20 mg PO WITHBREAKFAST [facility] Simvastatin (Zocor) 10 mg PO BEDTIME [facility] Assessment/Plan Comment:: Continue physical therapy Continue wound care, using sterile saline wet-to-dry dressings. Continue amoxicillin Continue Xarelto and metoprolol and amiodarone for atrial fibrillation Continue gabapentin for neuropathy Continue levothyroxine for hypothyroidism Low-carb diet, blood glucose daily for diabetes mellitus She is on Xarelto for her atrial fibrillation which is good for DVT prophylaxis as well
[2017-08-30] MEDS: Nystatin Topical Powder 30 GM Bottle TOP SCH (20:18)
[2017-08-30] MEDS ORDERED: [UNRECOGNIZED DRUG - OTHER] TOP SCH (21:00)
[2017-08-30] MEDS ORDERED: SODIUM HYPOCHLORITE TOP SCH (21:00)
[2017-08-30] MEDS: Metoprolol Tartrate 25 MG Tab PO SCH (21:34)
[2017-08-30] MEDS: Amoxicillin 500 MG Cap PO SCH (21:34)
[2017-08-30] MEDS: Acetaminophen/HYDROcodone 325-10 MG Tab PO PRN (21:40)
[2017-08-30] MEDS: Gabapentin 300 MG Cap PO SCH (21:40)
[2017-08-30] MEDS: Simvastatin 10 MG Tab PO SCH (21:40)
[2017-08-30] MEDS: [UNRECOGNIZED DRUG - OTHER] TOP SCH (21:49)
[2017-08-30] MEDS: SODIUM HYPOCHLORITE TOP SCH (21:49)
[2017-08-31] MEDS: Acetaminophen/HYDROcodone 325-10 MG Tab PO PRN ×3 (03:09→20:27)
[2017-08-31] MEDS: Pantoprazole 40 MG Tab.CR PO SCH ×2 (06:26→16:53)
[2017-08-31] MEDS: Levothyroxine 75 MCG Tab PO SCH (06:27)
[2017-08-31] MEDS: [UNRECOGNIZED DRUG - OTHER] TOP SCH ×4 (06:31→20:28)
[2017-08-31] MEDS: SODIUM HYPOCHLORITE TOP SCH ×4 (06:31→20:28)
[2017-08-31] MEDS: Polyethylene Glycol 3350 Powder 17 GM Packet PO SCH (10:07)
[2017-08-31] MEDS: Amoxicillin 500 MG Cap PO SCH ×3 (10:08→20:24)
[2017-08-31] MEDS: Ascorbic Acid 500 MG Tab PO SCH (10:09)
[2017-08-31] MEDS: Calcium Carbonate/Vitamin D3 1250 MG-200 Unit Tab PO SCH (10:09)
[2017-08-31] MEDS: Escitalopram 10 MG Tab PO SCH (10:09)
[2017-08-31] MEDS: Amiodarone 200 MG Tab PO SCH (10:09)
[2017-08-31] MEDS: Rivaroxaban 10 MG Tab PO SCH (10:09)
[2017-08-31] MEDS: Metoprolol Tartrate 25 MG Tab PO SCH ×2 (10:10→20:27)
[2017-08-31] MEDS: Iron Polysaccharides Complex 150 MG Cap PO SCH (10:10)
[2017-08-31] MEDS: Nystatin Topical Powder 30 GM Bottle TOP SCH ×2 (10:14→20:27)
[2017-08-31] MEDS: Simvastatin 10 MG Tab PO SCH (20:26)
[2017-08-31] MEDS: Gabapentin 300 MG Cap PO SCH (20:27)
[2017-09-01] MEDS: Levothyroxine 75 MCG Tab PO SCH (06:10)
[2017-09-01] MEDS: Pantoprazole 40 MG Tab.CR PO SCH ×2 (06:10→16:37)
[2017-09-01] MEDS: Iron Polysaccharides Complex 150 MG Cap PO SCH (08:29)
[2017-09-01] MEDS: Calcium Carbonate/Vitamin D3 1250 MG-200 Unit Tab PO SCH (08:29)
[2017-09-01] MEDS: Escitalopram 10 MG Tab PO SCH (08:29)
[2017-09-01] MEDS: Ascorbic Acid 500 MG Tab PO SCH (08:29)
[2017-09-01] MEDS: Rivaroxaban 10 MG Tab PO SCH (08:29)
[2017-09-01] MEDS: Amiodarone 200 MG Tab PO SCH (08:29)
[2017-09-01] MEDS: Acetaminophen/HYDROcodone 325-10 MG Tab PO PRN ×3 (08:29→23:50)
[2017-09-01] MEDS: Polyethylene Glycol 3350 Powder 17 GM Packet PO SCH (08:30)
[2017-09-01] MEDS: Nystatin Topical Powder 30 GM Bottle TOP SCH ×2 (08:31→20:37)
[2017-09-01] MEDS: SODIUM HYPOCHLORITE TOP SCH ×3 (08:31→20:56)
[2017-09-01] MEDS: [UNRECOGNIZED DRUG - OTHER] TOP SCH ×3 (08:31→20:56)
[2017-09-01] MEDS: Metoprolol Tartrate 25 MG Tab PO SCH ×2 (08:33→20:36)
[2017-09-01] MEDS: Amoxicillin 500 MG Cap PO SCH (08:50)
[2017-09-01] MEDS ORDERED: Iopamidol 612 MG/ML 50 ML SDV IVPUSH ONE (10:30)
--- NOTE | 2017-09-01 12:13 | PCM.PN ---
- General Info Date of Service: 09/01/17 Admission Dx/Problem (Free Text): Admission Diagnosis/Problem Admission Diagnosis/Problem Weakness, left hip wound Subjective Update: While nurse changing dressing for left hip wound they noticed that she has induration adjacent to the wound and the nurse was able to express some purulent material from the wound. I saw and evaluated the patient. Patient stated that she does not have fever, chills, sweats, nausea, vomiting, feeling ill, having any new symptoms. She denies pain in the left hip area. - Patient Data Vitals - Most Recent: Last Vital Signs Temp 36.7 C 09/01/17 07:16 Pulse 91 09/01/17 08:33 Resp 20 09/01/17 07:16 BP 114/51 L 09/01/17 08:33 Pulse Ox 98 09/01/17 07:16 Weight - Most Recent: 133.946 kg I&O - Last 24 Hours: Intake & Output 08/31/17 09/01/17 09/01/17 22:59 06:59 14:59 Intake Total 850 600 240 Output Total 150 50 Balance 700 550 240 Lab Results Last 24 Hours: Laboratory Results - last 24 hr 09/01/17 Range/Units 07:34 POC Glucose 108 H (70-105) mg/dl David Results Last 24 Hours: Microbiology 09/01/17 09:50 Gram Stain - Final Hip, Left Med Orders - Current: Current Medications Acetaminophen (Tylenol) 650 mg PO Q8H PRN PRN Reason: Pain (mild 1-3) Hydrocodone Bitart/Acetaminophen ([place] 325-10 Mg) 1 tab PO Q6H PRN PRN Reason: Pain (moderate 4-6) Last Admin: 09/01/17 08:29 Dose: 1 tab Amiodarone HCl (Cordarone) 200 mg PO DAILY [facility] Last Admin: 09/01/17 08:29 Dose: 200 mg Amoxicillin (Amoxil) 500 mg PO TID [facility] Stop: 09/06/17 14:01 Last Admin: 09/01/17 08:50 Dose: 500 mg Artificial Tears (Liquitears 1.4% Ophth Soln) 0 ml EYEBOTH ASDIRECTED PRN PRN Reason: Dry Eyes Ascorbic Acid (Vitamin C) 500 mg PO DAILY [facility] Last Admin: 09/01/17 08:29 Dose: 500 mg Benzocaine/Menthol (Cepacol Sore Throat) 1 lozenge MUCMEM Q6H PRN PRN Reason: Sore Throat Calcium Carbonate (Calcium Carbonate/Vitamin D 1250 Mg-200 Unit) 1 tab PO DAILY [facility] Last Admin: 09/01/17 08:29 Dose: 1 tab Cyclobenzaprine HCl (Flexeril) 10 mg PO BEDTIME PRN PRN Reason: muscles Escitalopram Oxalate (Lexapro) 20 mg PO DAILY [facility] Last Admin: 09/01/17 08:29 Dose: 20 mg Gabapentin (Neurontin) 300 mg PO BEDTIME [facility] Last Admin: 08/31/17 20:27 Dose: 300 mg Levothyroxine Sodium (Levothyroxine) 75 mcg PO ACBRK [facility] Last Admin: 09/01/17 06:10 Dose: 75 mcg Metoprolol Tartrate (Lopressor) 25 mg PO BID [facility] Last Admin: 09/01/17 08:33 Dose: 25 mg Dakin's (Na Hypochlorite) 0.25% Solution 0 each TOP TID@0900,1400,2100 [facility] Last Admin: 09/01/17 08:31 Dose: 1 each Nystatin (Nystop) 0 gm TOP BID [facility] Last Admin: 09/01/17 08:31 Dose: 1 applic Ondansetron HCl (Zofran Odt) 4 mg PO Q6H PRN PRN Reason: nausea, able to take PO Pantoprazole Sodium (Protonix) 40 mg PO BIDAC [facility] Last Admin: 09/01/17 06:10 Dose: 40 mg Polyethylene Glycol (Miralax) 17 gm PO DAILY [facility] Last Admin: 09/01/17 08:30 Dose: 17 gm Polysaccharide Iron Complex (Ferrex 150) 150 mg PO DAILY [facility] Last Admin: 09/01/17 08:29 Dose: 150 mg Rivaroxaban (Xarelto) 20 mg PO WITHBREAKFAST [facility] Last Admin: 09/01/17 08:29 Dose: 20 mg Simvastatin (Zocor) 10 mg PO BEDTIME [facility] Last Admin: 08/31/17 20:26 Dose: 10 mg Sodium Chloride ([place] Nasal [place]) 1 ml YOANDY BID PRN PRN Reason: Nasal Congestion Zolpidem Tartrate (Ambien) 5 mg PO BEDTIME PRN PRN Reason: Sleep Discontinued Medications Iopamidol (Isovue-300 (61%)) 125 ml IVPUSH ONETIME ONE Stop: 09/01/17 10:31 Dakin's (Na Hypochlorite) 0.25% Solution 0 each TOP TID [facility] Last Admin: 08/30/17 20:19 Dose: 1 each Dakin's (Na Hypochlorite) 0.25% Solution 0 each TOP TID@0600,1400,2200 [facility] Last Admin: 08/31/17 06:31 Dose: Not Given - Exam General: Alert, Oriented, Cooperative, No Acute Distress. No: Mild Distress, Moderate Distress, Severe Distress, Sedated, Lethargic HEENT: Pupils Equal, Pupils Reactive, EOMI, Mucous Membr. Moist/[place] Neck: Supple, Trachea Midline, No JVD Lungs: Clear to Auscultation, Normal Respiratory Effort Cardiovascular: Regular Rate, Regular Rhythm GI/Abdominal Exam: Normal Bowel Sounds, Soft, Non-Tender, No Organomegaly, No Distention (Female) Exam: Deferred Back Exam: Normal Inspection, Full Range of Motion Extremities: Normal Range of Motion, No Pedal Edema, Normal Capillary Refill, Other (Left hip wound, is open with healthy granulating tissue. There is mild induration just superior to the edge of the wound. Massaging that induration I was able to express some pus from the wound. Otherwise I did not appreciate redness, swelling, fluctuation.) Skin: Dry, Intact Wound/Incisions: Healing Well Neurological: No New Focal Deficit Psy/Mental Status: Alert, Normal Affect, Normal Mood - Problem List & Annotations (1) Failure to thrive in adult SNOMED Code(s): 931464962 Code(s): R62.7 - ADULT FAILURE TO THRIVE Status: Chronic Current Visit: No (2) Self-care deficit for bathing and hygiene SNOMED Code(s): 16028913 Code(s): R46.0 - VERY LOW LEVEL OF PERSONAL HYGIENE Status: Chronic Current Visit: No (3) A-fib SNOMED Code(s): 06767362 Code(s): I48.91 - UNSPECIFIED ATRIAL FIBRILLATION Status: Chronic Priority: Medium Current Visit: No Onset Date: ~07/06/16 Qualifiers: (4) Chronic anticoagulation SNOMED Code(s): 403004220 Code(s): Z79.01 - HALFWAY (CURRENT) USE OF ANTICOAGULANTS Status: Chronic Current Visit: No Onset Date: ~09/04/16 (5) Diabetes mellitus, type 2 SNOMED Code(s): 21740829 Code(s): E11.9 - TYPE 2 DIABETES MELLITUS WITHOUT COMPLICATIONS Status: Chronic Priority: Medium Current Visit: No Qualifiers: (6) Morbid obesity with BMI of 60.0-69.9, adult SNOMED Code(s): 613956353 Code(s): E66.01 - MORBID (SEVERE) OBESITY DUE TO EXCESS CALORIES; Z68.44 - BODY MASS INDEX (BMI) 60.0-69.9, ADULT Status: Chronic Priority: High Current Visit: No - Problem List Review Problem List Initiated/Reviewed/Updated: Yes - My Orders Last 24 Hours: My Active Orders 09/01/17 09:50 CULTURE WOUND + SMEAR [RM] Routine 09/01/17 10:29 Pelvis w Cont [CT] Routine - Plan Plan:: Impression: 61-year-old with the above comorbidities who has left hip open wound which seems to to have healthy granulating tissue but had some pus coming out with applying pressure around the wound. CT of the area reported: "Left lateral hip and upper thigh is changes consistent with cellulitis. No evidence for abscess. " However on the exam the age of so wound and the skin around it looks normal. Plan: I sent a culture of the pus. I spoke to patient's primary care provider Dr. Soares in this regard who does not believe that patient had history of MRSA. I spoke to patient about options of going places where there are surgeon for further evaluation. At this time patient does not believe that she can go back to [facility] and she wants to continue the care here. We did some packing to the area were some pus coming from. Change amoxicillin to Zosyn. Continue dressing change with packing Continue physical therapy Continue wound care, using sterile saline wet-to-dry dressings. Continue amoxicillin Continue Xarelto and metoprolol and amiodarone for atrial fibrillation Continue gabapentin for neuropathy Continue levothyroxine for hypothyroidism Low-carb diet, blood glucose daily for diabetes mellitus She is on Xarelto for her atrial fibrillation which is good for DVT prophylaxis as well
[2017-09-01] MEDS: Piperacillin/Tazobactam 3.375 GM in Sodium Chloride 0.9% 100 ML IV SCH ×2 (12:46→18:38)
[2017-09-01] MEDS: Simvastatin 10 MG Tab PO SCH (20:35)
[2017-09-01] MEDS: Gabapentin 300 MG Cap PO SCH (20:36)
[2017-09-02] MEDS: Piperacillin/Tazobactam 3.375 GM in Sodium Chloride 0.9% 100 ML IV SCH ×5 (01:22→23:23)
[2017-09-02] MEDS: Sodium Chloride 0.9% 10 ML Syringe FLUSH PRN ×5 (01:23→23:21)
[2017-09-02] MEDS: Pantoprazole 40 MG Tab.CR PO SCH ×2 (05:15→17:02)
[2017-09-02] MEDS: Levothyroxine 75 MCG Tab PO SCH (05:18)
[2017-09-02] MEDS: Acetaminophen/HYDROcodone 325-10 MG Tab PO PRN ×3 (06:03→23:07)
[2017-09-02] MEDS ORDERED: Magnesium Hydroxide 400 MG/5 ML Susp 30 ML Cup PO PRN (08:15)
[2017-09-02] MEDS: Iron Polysaccharides Complex 150 MG Cap PO SCH (09:25)
[2017-09-02] MEDS: Rivaroxaban 10 MG Tab PO SCH (09:25)
[2017-09-02] MEDS: Metoprolol Tartrate 25 MG Tab PO SCH ×2 (09:25→20:35)
[2017-09-02] MEDS: Amiodarone 200 MG Tab PO SCH (09:25)
[2017-09-02] MEDS: Calcium Carbonate/Vitamin D3 1250 MG-200 Unit Tab PO SCH (09:25)
[2017-09-02] MEDS: Ascorbic Acid 500 MG Tab PO SCH (09:25)
[2017-09-02] MEDS: Docusate Sodium 100 MG Cap PO PRN (09:26)
[2017-09-02] MEDS: Nystatin Topical Powder 30 GM Bottle TOP SCH ×2 (09:27→22:23)
[2017-09-02] MEDS: Polyethylene Glycol 3350 Powder 17 GM Packet PO SCH (09:27)
[2017-09-02] MEDS: SODIUM HYPOCHLORITE TOP SCH ×3 (09:35→20:38)
[2017-09-02] MEDS: Escitalopram 10 MG Tab PO SCH (09:35)
[2017-09-02] MEDS: [UNRECOGNIZED DRUG - OTHER] TOP SCH ×3 (09:35→20:38)
--- NOTE | 2017-09-02 14:48 | CR ---
CLINICAL HISTORY: 61-year-old female physical exam (fdc TB screening). INTERPRETATION: Chronic pleural parenchymal scarring lingula left upper lobe that was evident on 2015 exam. Reasonable inspiratory effort obese female with some bibasilar atelectasis. Borderline cardiomegaly but no cephalization of vascular flow, signs of alveolar edema or dependent n ew pleural effusion. No new lung mass, hilar lymphadenopathy or focal lobar pneumonia. No ghon complex, apical pleural sca rring or effusion. INTERPRETATION: No acute new cardiopulmonary abnormality. No current radiographic evidence tuberculos is.
[2017-09-02] MEDS: Gabapentin 300 MG Cap PO SCH (20:35)
[2017-09-02] MEDS: Simvastatin 10 MG Tab PO SCH (20:35)
[2017-09-03] MEDS: Sodium Chloride 0.9% 10 ML Syringe FLUSH PRN ×2 (00:23→05:12)
[2017-09-03] MEDS: Piperacillin/Tazobactam 3.375 GM in Sodium Chloride 0.9% 100 ML IV SCH (05:14)
[2017-09-03] MEDS: Levothyroxine 75 MCG Tab PO SCH (05:17)
[2017-09-03] MEDS: Pantoprazole 40 MG Tab.CR PO SCH ×2 (05:17→16:44)
[2017-09-03] MEDS: Polyethylene Glycol 3350 Powder 17 GM Packet PO SCH (09:05)
[2017-09-03] MEDS: Acetaminophen/HYDROcodone 325-10 MG Tab PO PRN ×3 (09:05→21:25)
[2017-09-03] MEDS: Escitalopram 10 MG Tab PO SCH (09:05)
[2017-09-03] MEDS: Doxycycline 100 MG Cap PO SCH ×3 (09:07→21:16)
[2017-09-03] MEDS: Ascorbic Acid 500 MG Tab PO SCH (09:08)
[2017-09-03] MEDS: Iron Polysaccharides Complex 150 MG Cap PO SCH (09:08)
[2017-09-03] MEDS: Metoprolol Tartrate 25 MG Tab PO SCH ×2 (09:08→21:14)
[2017-09-03] MEDS: Amiodarone 200 MG Tab PO SCH (09:08)
[2017-09-03] MEDS: Calcium Carbonate/Vitamin D3 1250 MG-200 Unit Tab PO SCH (09:08)
[2017-09-03] MEDS: Rivaroxaban 10 MG Tab PO SCH (09:09)
[2017-09-03] MEDS: Nystatin Topical Powder 30 GM Bottle TOP SCH ×2 (10:23→21:17)
[2017-09-03] MEDS: [UNRECOGNIZED DRUG - OTHER] TOP SCH ×3 (10:50→21:19)
[2017-09-03] MEDS: SODIUM HYPOCHLORITE TOP SCH ×3 (10:50→21:19)
[2017-09-03] MEDS: Gabapentin 300 MG Cap PO SCH (21:15)
[2017-09-03] MEDS: Simvastatin 10 MG Tab PO SCH (21:16)
[2017-09-04] MEDS: Levothyroxine 75 MCG Tab PO SCH (05:24)
[2017-09-04] MEDS: Pantoprazole 40 MG Tab.CR PO SCH ×2 (05:25→17:38)
[2017-09-04] MEDS: Amiodarone 200 MG Tab PO SCH (08:39)
[2017-09-04] MEDS: Calcium Carbonate/Vitamin D3 1250 MG-200 Unit Tab PO SCH (08:39)
[2017-09-04] MEDS: Iron Polysaccharides Complex 150 MG Cap PO SCH (08:40)
[2017-09-04] MEDS: Acetaminophen/HYDROcodone 325-10 MG Tab PO PRN ×3 (08:40→23:52)
[2017-09-04] MEDS: Escitalopram 10 MG Tab PO SCH (08:40)
[2017-09-04] MEDS: Ascorbic Acid 500 MG Tab PO SCH (08:40)
[2017-09-04] MEDS: Metoprolol Tartrate 25 MG Tab PO SCH ×2 (08:40→21:24)
[2017-09-04] MEDS: Rivaroxaban 10 MG Tab PO SCH (08:40)
[2017-09-04] MEDS: Doxycycline 100 MG Cap PO SCH ×2 (08:40→21:24)
[2017-09-04] MEDS: SODIUM HYPOCHLORITE TOP SCH ×3 (08:41→21:26)
[2017-09-04] MEDS: Polyethylene Glycol 3350 Powder 17 GM Packet PO SCH (08:41)
[2017-09-04] MEDS: Nystatin Topical Powder 30 GM Bottle TOP SCH ×2 (08:41→21:25)
[2017-09-04] MEDS: [UNRECOGNIZED DRUG - OTHER] TOP SCH ×3 (08:41→21:26)
[2017-09-04] MEDS: Docusate Sodium 100 MG Cap PO PRN (17:55)
[2017-09-04] MEDS: Gabapentin 300 MG Cap PO SCH (21:24)
[2017-09-04] MEDS: Simvastatin 10 MG Tab PO SCH (21:25)
[2017-09-05] MEDS: Pantoprazole 40 MG Tab.CR PO SCH (05:21)
[2017-09-05] MEDS: Levothyroxine 75 MCG Tab PO SCH (05:21)
[2017-09-05 07:57] VITALS: BP 133/73
[2017-09-05] MEDS: Escitalopram 10 MG Tab PO SCH (08:34)
[2017-09-05] MEDS: Ascorbic Acid 500 MG Tab PO SCH (08:34)
[2017-09-05] MEDS: Calcium Carbonate/Vitamin D3 1250 MG-200 Unit Tab PO SCH (08:35)
[2017-09-05] MEDS: Rivaroxaban 10 MG Tab PO SCH (08:35)
[2017-09-05] MEDS: Amiodarone 200 MG Tab PO SCH (08:35)
[2017-09-05] MEDS: Acetaminophen/HYDROcodone 325-10 MG Tab PO PRN (08:35)
[2017-09-05] MEDS: Metoprolol Tartrate 25 MG Tab PO SCH (08:35)
[2017-09-05] MEDS: Doxycycline 100 MG Cap PO SCH (08:35)
[2017-09-05] MEDS: Iron Polysaccharides Complex 150 MG Cap PO SCH (08:35)
[2017-09-05] MEDS: Polyethylene Glycol 3350 Powder 17 GM Packet PO SCH (08:36)
[2017-09-05] MEDS: [UNRECOGNIZED DRUG - OTHER] TOP SCH (08:37)
[2017-09-05] MEDS: SODIUM HYPOCHLORITE TOP SCH (08:37)
[2017-09-05] MEDS: Nystatin Topical Powder 30 GM Bottle TOP SCH (08:37)
--- NOTE | 2017-09-05 11:21 | DISCH ---
CHIEF COMPLAINT: 1. Generalized debility and bed-bound status. 2. Decubitus ulcer involving the left hip, requiring daily dressing changes. DISCHARGE DIAGNOSES: 1. Generalized debility, requiring [facility] to [facility] for continued physical therapy and occupational therapy. 2. Decubitus ulcer involving the left lateral hip, requiring daily dressing changes on chronic antibiotics, and currently on doxycycline. HISTORY OF PRESENTING ILLNESS: Mrs. Endy Beck is a 61-year-old female with medical history significant for hypertension, type 2 diabetes mellitus, dyslipidemia, neuropathy, morbid obesity, and decubitus ulcer involving the left hip, requiring debridement and incision and drainage of the wound in [place] and was later transferred to [facility] in [place]. The patient left against medical advice from [facility] in [place] and went home and was unable to be taken care of at home, so social work case manager was involved and got readmitted to the hospital. She was admitted to the hospital on August 28, 2017 and continued wound care. She was admitted to [facility] on August 30, 2007 and has been undergoing physical therapy and occupational therapy. She was initially treated with IV antibiotics as they were some questionable pus coming out from the wound. The patient had a CT scan of the pelvic region to see if there is any deep-seated abscess, but CT scan did not show any deep-seated abscess. There was left lateral hip and upper thigh changes, consistent cellulitis, no evidence for abscess noted. There was some trace left hip effusion, possible inflammatory process at the level of the right iliacus muscle versus scarring from previous event suggesting hemorrhage, but no deep-seated abscess noted on the CT scan. We continued dressing changes. She was also treated with IV antibiotic on this admission including Zosyn, and then later changed to oral doxycycline. Her pulse cultures were positive for Citrobacter braakii, but her blood cultures remained negative. The Citrobacter was sensitive to Dox/tetracyclnie. She responded well to the treatment and the wound started healing well. She will continue with daily wound dressings. She is discharged to [facility] in stable condition. She is advised to follow with surgery team as needed if the wound does not heal well. She is advised to follow with her primary care physician next 1 week of time. DISCHARGE MEDICATIONS: Include; 1. Tylenol 650 every 8 hours as needed for pain. 2. [place] 1 tablet every 6 hours as needed for severe pain. 3. Amiodarone 200 mg daily. 4. Ascorbic acid 500 mg daily. 5. Bisacodyl suppository rectal as needed for constipation. 6. Calcium carbonate with vitamin D one tablet daily. 7. Flexeril 10 mg at bedtime as needed for muscle spasms. 8. Doxycycline 100 mg oral twice a day for 1 week. 9. Lexapro 20 mg daily. 10.Neurontin 300 mg at bedtime. 11.Iron polysaccharide 150 mg daily. 12.Lactulose 15 mL daily. 13.Levothyroxine 75 mcg oral daily. 14.Melatonin 1 tablet at bedtime as needed for sleep. 15.Metoprolol 25 mg twice a day. 16.Multivitamin 1 tablet daily. 17.Protonix 40 mg twice a day. 18.MiraLax 17 g oral daily as needed for constipation. 19.Potassium chloride 10 mEq daily. 20.Rivaroxaban 20 mg with breakfast. 21.Senokot 2 tablets twice daily. 22.Zocor 10 mg at bedtime. PHYSICAL EXAMINATION: Vital Signs: On the day of discharge vitals; temperature of 97.5, pulse of 88, blood pressure 133/73, respiratory rate of 20, saturating at 100% on room air. General Appearance: The patient is well oriented to time, place, and person. Follows commands spontaneously. Cardiovascular System: S1 and S2 heard with normal intensity. No gallops. Respiratory System: Clear to auscultation bilaterally. No wheeze. No crepitations. Abdomen: Soft. Bowel sounds positive. Nontender. No rigidity. Extremities: No edema bilateral lower extremities. The patient noted to have mild open wound on the left lateral hip. No secretions noted. No drainage noted from the wound. No erythema, no swelling noted around the wound. The wound looks healthy and healing well. Continue with the daily dressings. CONDITION ON ADMISSION: Poor. CONDITION ON DISCHARGE: Stable. DISPOSITION: Discharged to [facility]iary. DIET: Cardiac healthy diet. ACTIVITY: As tolerated. FOLLOWUP: 1. Follow with General Surgery physician as needed for continued wound cares. 2. Follow with primary care physician next 1 week of time. Spent over 35 minutes of time in evaluating and treating this patient in coordination of cares. [facility] /[id number]
== END 2017-09-05 10:55 | DRG 593 ==
LOC: UNDOADMIN 14:50 → DL.MS 14:50 → UNDOADMIN 16:46 → DL.MS 16:46
PROVIDERS: ADMIT Family Medicine; ATTEND Family Medicine
PROC: 2W0 Placement, Anatomical Regions, Change (ICD-10-PCS; principal; 2017-08-30)
DX: L89.229 Pressure ulcer of left hip, unspecified stage (principal); Z68.44 Body mass index [BMI] 60.0-69.9, adult; L03.116 Cellulitis of left lower limb; R62.7 Adult failure to thrive; I48.91 Unspecified atrial fibrillation; E66.01 Morbid (severe) obesity due to excess calories; I10 Essential (primary) hypertension; E78.5 Hyperlipidemia, unspecified; E11.40 Type 2 diabetes mellitus with diabetic neuropathy, unspecified; J45.909 Unspecified asthma, uncomplicated; K21.9 Gastro-esophageal reflux disease without esophagitis; Z74.1 Need for assistance with personal care; F32.9 Major depressive disorder, single episode, unspecified; E03.9 Hypothyroidism, unspecified; B96.89 Other specified bacterial agents as the cause of diseases classified elsewhere; R53.1 Weakness; Z79.899 Other long term (current) drug therapy; Z79.01 Long term (current) use of anticoagulants; Z85.43 Personal history of malignant neoplasm of ovary
CPT/HCPCS: 71010; 72193; 82962; 87070; 87077; 87186; 87205; 97110-GO; 97162-GP; 97166-GO; A9270-GY; J2543; J7050; Q9967